=== PATIENT | male | born 1980 | race Two or more races ===

== ENCOUNTER 2017-05-05 10:03 | Emergency (ER) | payer SELFPAY ==
[2017-05-05] MEDS: HYDROcodone/APAP 5/325MG 1 TAB TABLET PO (11:17)
== END 2017-05-05 11:32 | disposition home or self-care (01) ==
LOC: ER 10:03
DX: S92.354A Nondisplaced fracture of fifth metatarsal bone, right foot, initial encounter for closed fracture (principal); X58.XXXA Exposure to other specified factors, initial encounter; Y93.89 Activity, other specified; Y92.009 Unspecified place in unspecified non-institutional (private) residence as the place of occurrence of the external cause; Y99.8 Other external cause status
CPT/HCPCS: 73630; 99284